=== PATIENT | male | born 1990 | race Caucasian/White ===

== ENCOUNTER 2022-11-08 22:12 | Emergency (ER) | payer OTHER ==
[~2022-11-08] VITALS: Ht 188 cm; Wt 93.2 kg
[2022-11-08] MEDS ORDERED: KETOROLAC TROMETHAMINE 30 MG/ML VIAL IM ONE (23:30)
[2022-11-08] MEDS ORDERED: CYCL-448 PO (23:31)
[2022-11-08 23:54] VITALS: BP 130/72
== END 2022-11-08 23:56 | disposition home or self-care (01) ==
LOC: EMS 22:15
DX: S13.4XXA Sprain of ligaments of cervical spine, initial encounter (principal); M62.838 Other muscle spasm; V98.8XXA Other specified transport accidents, initial encounter; Y93.89 Activity, other specified; Y92.89 Other specified places as the place of occurrence of the external cause; Y99.8 Other external cause status
CPT/HCPCS: 99285; 72125; 96372; J1885

== ENCOUNTER 2024-05-26 20:43 | Emergency (ER) | payer OTHER ==
[~2024-05-26] VITALS: Ht 188 cm; Wt 93.2 kg
[~2024-05-26 20:43] MED LIST: CYCL-448 PO
[2024-05-26] MEDS: IBUPROFEN 600 MG TABLET PO ONE ×2 (21:34→22:49)
[2024-05-26] MEDS ORDERED: HYDR-4072 PO (22:47)
[2024-05-26] MEDS ORDERED: IBUP-1493 PO (22:47)
[2024-05-26] MEDS ORDERED: METH-659 PO (22:47)
[2024-05-26] MEDS: HYDROCODONE/ACETAMINOPHEN 5-325 MG TABLET PO ONE (22:48)
[2024-05-26] MEDS: METHOCARBAMOL 500 MG TABLET PO ONE (22:48)
[2024-05-26 23:15] VITALS: BP 127/68; PULSE 89; RESP 16; TEMP 97.3; O2SAT 100
== END 2024-05-26 23:36 | disposition home or self-care (01) ==
LOC: EMS 20:43
DX: S13.4XXA Sprain of ligaments of cervical spine, initial encounter (principal); V89.2XXA Person injured in unspecified motor-vehicle accident, traffic, initial encounter; Y93.89 Activity, other specified; Y92.89 Other specified places as the place of occurrence of the external cause; Y99.8 Other external cause status
CPT/HCPCS: 72040; 99284; Z7502; Z7610

== ENCOUNTER 2024-11-25 21:22 | Emergency (ER) | payer OTHER ==
[~2024-11-25] VITALS: Ht 188 cm; Wt 93.2 kg
[~2024-11-25 21:22] MED LIST changes: +HYDR-4072 PO; +IBUP-1493 PO; +METH-659 PO
[2024-11-25 21:30] VITALS: BP 118/68; PULSE 81; RESP 16; TEMP 97.8; O2SAT 98
[2024-11-25 22:05] LABS: BASOPHILS % (AUTO) 1.3 % (0.0-2.0); EOSINOPHILS % (AUTO) 5.9 % (1.0-6.0); HEMATOCRIT 43.4 % (41-53); HEMOGLOBIN 14.8 g/dL (13.5-17.5); LYMPHOCYTES # (AUTO) 2.8 K/uL (1.0-4.8); LYMPHOCYTES % (AUTO) 32.8 % (22.0-44.0); MEAN CORPUSCULAR HEMOGLOBIN 29.4 pg (26.0-34.0); MEAN CORPUSCULAR HGB CONC 34.2 G/dL (31.0-37.0); MEAN CORPUSCULAR VOLUME 86 fL (80-100); MONOCYTES # (AUTO) 0.7 K/uL (0.1-1.0); MONOCYTES % (AUTO) 8.8 % (2.0-9.0); NEUTROPHILS # (AUTO) 4.3 K/uL (1.8-7.7); NEUTROPHILS % (AUTO) 51.2 % (40.0-70.0); PLATELET COUNT (AUTO) 326 K/uL (150-450); RED BLOOD CELL COUNT(AUTO) 5.04 MIL/uL (4.50-5.90); RED CELL DISTRIBUTION WIDTH 13.3 % (11.5-14.5); WHITE BLOOD COUNT (AUTO) 8.5 K/uL (4.5-11.0)
[2024-11-25 22:10] LABS: ANION GAP 4 mmol/L (8-16); CALCIUM, TOTAL 8.8 mg/dL (8.8-10.5); CARBON DIOXIDE 33 mmol/L (22-29); CHLORIDE 106 mmol/L (98-107); CREATININE 1.04 mg/dL (0.60-1.30); GLOMERULAR FILTR. RATE CALC > 60 mL/min (>60); GLUCOSE,RANDOM 109 mg/dL (70-110); POTASSIUM 4.1 mmol/L (3.5-5.1); SODIUM SERUM 143 mmol/L (136-145); UREA NITROGEN, BLOOD 14 mg/dL (7-18)
[2024-11-25] MEDS: CLINDAMYCIN 600 MG/D5% WATER 50 ML IV ONE (23:16)
[2024-11-25] MEDS: LIDOCAINE 1% 10 ML VIAL SQ ONE (23:16)
[2024-11-25] MEDS ORDERED: CLIN-142 PO (23:28)
== END 2024-11-25 23:53 | disposition home or self-care (01) ==
LOC: EMS 21:26
DX: J34.0 Abscess, furuncle and carbuncle of nose (principal)
CPT/HCPCS: 99284; 96365; 10060; 80048; 85025; 87040; 36415; J3490

== ENCOUNTER 2024-12-03 20:15 | Emergency (ER) | payer OTHER ==
[~2024-12-03] VITALS: Ht 188 cm; Wt 93.2 kg
[~2024-12-03 20:15] MED LIST changes: +CLIN-142 PO
[2024-12-03 20:21] VITALS: BP 133/74; PULSE 74; RESP 18; TEMP 98.3; O2SAT 99
[2024-12-03] MEDS ORDERED: DOXY-354 PO (22:24)
== END 2024-12-03 22:41 | disposition home or self-care (01) ==
LOC: EMS 20:15
DX: J34.0 Abscess, furuncle and carbuncle of nose (principal)
CPT/HCPCS: 99284; Z7502